=== PATIENT | male | born 1990 | race Caucasian/White ===

== ENCOUNTER 2017-07-16 11:10 | Emergency (ER) | payer SELFPAY ==
[~2017-07-16] VITALS: Ht 175.3 cm; Wt 106.0 kg
[2017-07-16 11:17] VITALS: BP 148/73; PULSE 74; RESP 16; TEMP 98.7; O2SAT 97
[2017-07-16] MEDS ORDERED: CLOT1CRE6 TOPICAL (11:42)
[2017-07-16] MEDS ORDERED: DOXY100C PO (11:42)
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
== END 2017-07-16 11:55 | disposition home or self-care (01) ==
LOC: PHEFT 11:10
DX: B35.4 Tinea corporis (principal); A69.20 Lyme disease, unspecified; M54.2 Cervicalgia
CPT/HCPCS: 99284

== ENCOUNTER 2018-02-01 16:12 | Observation (INO) | payer OTHER ==
[~2018-02-01] VITALS: Ht 177.8 cm; Wt 100.7 kg
[~2018-02-01 16:12] MED LIST: CLOT1CRE6 TOPICAL; DOXY100C PO
[2018-02-01 16:19] VITALS: BP 162/101; PULSE 66; RESP 16; TEMP 99.2; O2SAT 99
[2018-02-01 16:34] VITALS: BP 142/80; PULSE 61; RESP 18; TEMP 98; O2SAT 99
--- NOTE | 2018-02-01 16:51 | PD ---
HPI Chief Complaint: Fall Time Seen by Provider: 16:31 Travel History International Travel<30 days: No Contact w/Intl Traveler<30days: No Traveled to known affect area: No History of Present Illness HPI 27yo M with no PMH presents to the ED with c/o left wrist pain, back pain, neck pain s/p fall from scaffolding that was about 6 feet high at work about an hour ago. Did hit his head but denies any LOC. Has some tingling in right foot. Denies any visual changes, chest pain, sob, n/v, abdominal pain, focal weakness. Pt was driven here and had cervical collar placed in the ED. PFSH Past Medical History Diminished Hearing: No Immunizations Current: Yes Influenza Vaccination: No Social History Alcohol Use: No Tobacco Use: No Substance Use: No Allergies-Medications (Allergen,Severity, Reaction): Coded Allergies: No Known Allergies (Verified , 02/01/18) Reported Meds & Prescriptions Reported Meds & Active Scripts Active No Active Prescriptions or Reported Medications Review of Systems Except as stated in HPI: all other systems reviewed are Neg Physical Exam Narrative GENERAL: 27yo M in mild distress. SKIN: Focused skin assessment warm/dry. HEAD: Atraumatic. Normocephalic. EYES: Pupils equal and round. No scleral icterus. No injection or drainage. ENT: No nasal bleeding or discharge. Mucous membranes pink and moist. NECK: Trachea midline. No JVD. CARDIOVASCULAR: Regular rate and rhythm. No murmur appreciated. RESPIRATORY: No accessory muscle use. Clear to auscultation. Breath sounds equal bilaterally. GASTROINTESTINAL: Abdomen soft, tender to palpation but said his back hurts when I press his abdomen. No rebound tenderness or guarding. BACK: MUSCULOSKELETAL: Left wrist: +TTP distal ulnar. Sensation intact. No scaphoid ttp. Radial pulse 2+. NEUROLOGICAL: Awake and alert. No obvious cranial nerve deficits. Motor grossly within normal limits in all extremities. Sensation equal in all extremities. Normal speech. PSYCHIATRIC: Appropriate mood and affect; insight and judgment normal. Data Data Last Documented VS Vital Signs Date Time Temp Pulse Resp B/P (MAP) Pulse Ox O2 Delivery O2 Flow Rate FiO2 02/01/18 19:31 16 02/01/18 19:20 87 131/69 (89) 98 Room Air 02/01/18 16:[address] Brain W/O Iv Contrast(Rout) (02/01/18 16:43) Ct Cerv Spine W/O Contrast (02/01/18 16:43) Ct Abd/Pel W Iv Contrast(Rout) (02/01/18 16:43) Ct Thorax/ Chest W Iv Contrast (02/01/18 16:43) Ct Thor Spine W/O Contrast (02/01/18 ) Ct Lumb Spine W/O Contrast (02/01/18 ) Wrist, Limited (Ap&Lat) (02/01/18 ) Iohexol 350 Inj (Omnipaque 350 Inj) (02/01/18 18:35) Morphine Inj (Morphine Inj) (02/01/18 19:15) Complete Blood Count With Diff (02/01/18 19:05) Basic Metabolic Panel (Bmp) (02/01/18 19:05) Prothrombin Time / Inr (Pt) (02/01/18 19:05) Act Partial Throm Time (Ptt) (02/01/18 19:05) Type And Screen (02/01/18 19:05) Ct Brain W/O Iv Contrast(Rout) (02/01/18 ) Place In Observation (02/01/18 ) Vital Signs (Adult) Q4H (02/01/18 20:18) Activity Oob With Assistance (02/01/18 20:18) Diet Npo (02/02/18 Breakfast) Sodium Chlor 0.9% 1000 Ml Inj (Ns 1000 M (02/01/18 20:18) Sodium Chloride 0.9% Flush (Ns Flush) (02/01/18 20:30) Sodium Chloride 0.9% Flush (Ns Flush) (02/01/18 21:00) Acetaminophen (Tylenol) (02/01/18 20:30) Ondansetron Inj (Zofran Inj) (02/01/18 20:30) Basic Metabolic Panel (Bmp) (02/02/18 06:00) Complete Blood Count With Diff (02/02/18 06:00) Naloxone Inj (Narcan Inj) (02/01/18 20:30) Docusate Sodium-Senna (Lakshmi-Colace) (02/01/18 21:00) Magnesium Hydroxide Liq (Milk Of Magnesi (02/01/18 20:30) Sennosides (Senokot) (02/01/18 20:30) Bisacodyl Supp (Dulcolax Supp) (02/01/18 20:30) Lactulose Liq (Lactulose Liq) (02/01/18 20:30) Diazepam (Valium) (02/01/18 20:30) Admit Order (Ed Use Only) (02/01/18 20:23) Labs Laboratory Tests Test 02/01/18 19:19 White Blood Count 12.2 TH/MM3 Red Blood Count 5.05 MIL/MM3 Hemoglobin 14.3 GM/DL Hematocrit 42.8 % Mean Corpuscular Volume 84.8 FL Mean Corpuscular Hemoglobin 28.2 PG Mean Corpuscular Hemoglobin Concent 33.3 % Red Cell Distribution Width 13.0 % Platelet Count 193 TH/MM3 Mean Platelet Volume 8.5 FL Neutrophils (%) (Auto) 77.3 % Lymphocytes (%) (Auto) 16.0 % Monocytes (%) (Auto) 4.9 % Eosinophils (%) (Auto) 0.9 % Basophils (%) (Auto) 0.9 % Neutrophils # (Auto) 9.4 TH/MM3 Lymphocytes # (Auto) 2.0 TH/MM3 Monocytes # (Auto) 0.6 TH/MM3 Eosinophils # (Auto) 0.1 TH/MM3 Basophils # (Auto) 0.1 TH/MM3 CBC Comment DIFF FINAL Differential Comment Prothrombin Time 11.8 SEC Prothromb Time International Ratio 1.2 RATIO Activated Partial Thromboplast Time 23.9 SEC Blood Urea Nitrogen 14 MG/DL Creatinine 0.99 MG/DL Random Glucose 84 MG/DL Calcium Level 8.8 MG/DL Sodium Level 138 MEQ/L Potassium Level 3.5 MEQ/L Chloride Level 104 MEQ/L Carbon Dioxide Level 27.3 MEQ/L Anion Gap 7 MEQ/L Estimat Glomerular Filtration Rate 89 ML/MIN [facility] Medical Decision Making Medical Screen Exam Complete: Yes Emergency Medical Condition: Yes Differential Diagnosis Fracture vs. contusion Narrative Course 27yo M with no significant PMH here with back pain and left wrist pain s/p fall from scaffolding about 6 feet high. Pt did hit his head but has no LOC. CT a/ p showed no acute disease. CT cervical spine showed no acute bony injury. Mild central to left disc protrusion with osteophytic ridging at C3-4. CT chest negative. CT brain showed punctate hyperdensity in anterior high parietal left convexity that is somewhat linear and could represent a dense cortical vein although a small parenchymal hemorrhage cannot be completely excluded. Recommend overnight observation and repeat CT brain in the am to ensure stability/resolution. CT LS showed no bony abnormality. CT TS negative. Xray left wrist negative. Labs reviewed, WBC 12.2. H/H normal. BMP unremarkable. I discussed with neurosurgery Dr. Mehta regarding CT brain and CT cspine results and he said that he agrees with observation and repeat CT brain but does not really see much. Also recommends outpatient follow up for the osteophytic ridging and said that it is chronic but may need MRI and will need outpatient follow up with neurosurgery. I informed pt of this and he agrees to follow up with neurosurgery as outpatient for this. I discussed with Dr. Phoenix and accepted to her service. Pt given morphine which help with pain but still have a lot muscle aches so valium given. Diagnosis Primary Impression: Fall Qualified Codes: W19.XXXA - Unspecified fall, initial encounter Admitting Information Admitting Physician Requests: Observation Scripts No Active Prescriptions or Reported Meds Shira Simeon DO Feb 01, 2018 16:51
--- NOTE | 2018-02-01 17:18 | RADRPT ---
EXAM DATE/TIME: 02/01/2018 16:56 [facility] COMPARISON: No previous studies available for comparison. INDICATIONS : Left distal ulnar pain after falling 6ft from scaffolding today. MEDICAL HISTORY : None. SURGICAL HISTORY : Left forearm. ENCOUNTER: Initial ACUITY: 1 day PAIN SCORE: 8/10 LOCATION: Left wrist. FINDINGS: Plate is seen bridging an old distal radius fracture. Anchors are seen at the radiocarpal joint. Al ignment anatomic. Fracture is not appreciated. CONCLUSION: Negative for fracture. Ravi Pearson MD FACR on February 01, 2018 at 17:16 Board Certified Radiologist. This report was verified electronically.
[2018-02-01] MEDS ORDERED: IOHEXOL 350 MG/ML 10 ML VIAL (for RAD DIAG) IVCONTRAST ONE (18:35)
--- NOTE | 2018-02-01 18:39 | RADRPT ---
EXAM DATE/TIME: 02/01/2018 17:29 [facility] COMPARISON: No previous studies available for comparison. INDICATIONS : Fell off of a scaffold. Pain. RADIATION DOSE: 62.53 CTDIvol (mGy) MEDICAL HISTORY : None SURGICAL HISTORY : None. ENCOUNTER: Initial ACUITY: 1 day PAIN SCALE: 10/10 LOCATION: cranial TECHNIQUE: Multiple contiguous axial images were obtained of the head. Using automated exposure control and adj ustment of the mA and/or kV according to patient size, radiation dose was kept as low as reasonably a chievable to obtain optimal diagnostic quality images. DICOM format image data is available electro nically for review and comparison. FINDINGS: CEREBRUM: The ventricles are normal for age. Punctate hyperdensity in the left anterior parietal region is some what linear and may represent a cortical vein although a small parenchymal hemorrhage cannot be compl etely excluded. No extra-axial fluid collections are seen. POSTERIOR FOSSA: The cerebellum and brainstem are intact. The 4th ventricle is midline. The cerebellopontine angle i s unremarkable. EXTRACRANIAL: The visualized portion of the orbits is intact. Small air-fluid level in the right maxillary antrum SKULL: The calvaria is intact. No evidence of skull fracture. CONCLUSION: 1. Punctate hyperdensity in the anterior high parietal left convexity is somewhat linear and could re present a dense cortical vein although a small parenchymal hemorrhage cannot be completely excluded. Since there is a mechanism of injury, I would recommend overnight observation and repeat CT scan of t he head in the a.m. to insure stability/resolution. 2. Small air-fluid level in the right maxillary antra could represent acute sinusitis. No obvious fra cture. Derrick Ariza MD on February 01, 2018 at 18:33 Board Certified Radiologist. This report was verified electronically.
--- NOTE | 2018-02-01 18:45 | RADRPT ---
EXAM DATE/TIME: 02/01/2018 17:35 [facility] COMPARISON: No previous studies available for comparison. INDICATIONS : Fell off of a scaffold. Pain. IV CONTRAST: 95 cc Omnipaque 350 (iohexol) IV ; Cumulative dose for multiple exams. RADIATION DOSE: 17.57 CTDIvol (mGy) ; Combined studies - Thorax/Abdomen/Pelvis MEDICAL HISTORY : None SURGICAL HISTORY : None. ENCOUNTER: Initial ACUITY: 1 day PAIN SCALE: 10/10 LOCATION: chest TECHNIQUE: Volumetric scanning of the chest was performed. Using automated exposure control and adjustment of t he mA and/or kV according to patient size, radiation dose was kept as low as reasonably achievable to obtain optimal diagnostic quality images. DICOM format image data is available electronically for review and comparison. Follow-up recommendations for detected pulmonary nodules are based at a minimum on nodule size and pa tient risk factors according to Fleischner Society Guidelines. FINDINGS: There is no pneumothorax. The lungs are symmetrically aerated. There is no parenchymal contusion. There is no axillary adenopathy. There is no mediastinal adenopathy. The great vessels are intact. There is no pericardial effusion. Upper abdominal contents are unrema rkable. Review of bone windows reveals the scapula to be intact. There is no rib fracture. There is no thor acic spine fracture. CONCLUSION: Negative CT scan of the chest for acute traumatic injury. Ravi Pearson MD FACR on February 01, 2018 at 18:41 Board Certified Radiologist. This report was verified electronically.
--- NOTE | 2018-02-01 18:49 | RADRPT ---
EXAM DATE/TIME: 02/01/2018 17:35 [facility] COMPARISON: No previous studies available for comparison. INDICATIONS : Fell off of a scaffold. Pain. IV CONTRAST: 95 cc Omnipaque 350 (iohexol) IV ; Cumulative dose for multiple exams. ORAL CONTRAST: No oral contrast ingested. RADIATION DOSE: 17.57 CTDIvol (mGy) ; Combined studies - Thorax/Abdomen/Pelvis MEDICAL HISTORY : None SURGICAL HISTORY : None. ENCOUNTER: Initial ACUITY: 1 day PAIN SCALE: 10/10 LOCATION: pelvis abdomen TECHNIQUE: Volumetric scanning of the abdomen and pelvis was performed. Using automated exposure control and ad justment of the mA and/or kV according to patient size, radiation dose was kept as low as reasonably achievable to obtain optimal diagnostic quality images. DICOM format image data is available electro nically for review and comparison. FINDINGS: LOWER LUNGS: The visualized lower lungs are clear. LIVER: Homogeneous density without lesion. There is no dilation of the biliary tree. No calcified gallston es. SPLEEN: Normal size without lesion. PANCREAS: Within normal limits. KIDNEYS: Normal in size and shape. There is no mass, stone or hydronephrosis. ADRENAL GLANDS: Within normal limits. VASCULAR: There is no aortic aneurysm. BOWEL/MESENTERY: The stomach, small bowel, and colon demonstrate no acute abnormality. There is no free intraperitone al air or fluid. ABDOMINAL WALL: Within normal limits. RETROPERITONEUM: There is no lymphadenopathy. BLADDER: No wall thickening or mass. REPRODUCTIVE: Within normal limits. INGUINAL: There is no lymphadenopathy or hernia. MUSCULOSKELETAL: Within normal limits for patient age. CONCLUSION: No acute disease. Mat Singh MD on February 01, 2018 at 18:45 Board Certified Radiologist. This report was verified electronically.
--- NOTE | 2018-02-01 19:08 | RADRPT ---
EXAM DATE/TIME: 02/01/2018 17:29 [facility] COMPARISON: No previous studies available for comparison. INDICATIONS : Fell off of a scaffold. Pain. RADIATION DOSE: 26.71 CTDIvol (mGy) MEDICAL HISTORY : None SURGICAL HISTORY : None. ENCOUNTER: Initial ACUITY: 1 day PAIN SCALE: 10/10 LOCATION: neck TECHNIQUE: Volumetric scanning of the cervical spine was performed. Multiplanar reconstructions in the sagittal, coronal and oblique axial planes were performed. Using automated exposure control and adjustment o f the mA and/or kV according to patient size, radiation dose was kept as low as reasonably achievable to obtain optimal diagnostic quality images. DICOM format image data is available electronically f or review and comparison. FINDINGS: VERTEBRAE: Normal vertebral body height. ALIGNMENT: No evidence of subluxation. C2-C3: The bony spinal canal is normal in size. No evidence of disc bulge or herniation. The neural forami na are bilaterally patent. There is mild right facet hypertrophy. C3-C4: There is a mild central to left sided disc protrusion with osteophytic ridging. There is a mild impre ssion on the thecal sac. The neural foramina are bilaterally patent. C4-C5: The bony spinal canal is normal in size. No evidence of disc bulge or herniation. The neural forami na are bilaterally patent. C5-C6: The bony spinal canal is normal in size. No evidence of disc bulge or herniation. The neural forami na are bilaterally patent. C6-C7: The bony spinal canal is normal in size. No evidence of disc bulge or herniation. The neural forami na are bilaterally patent. C7-T1: The bony spinal canal is normal in size. No evidence of disc bulge or herniation. The neural forami na are bilaterally patent. CONCLUSION: 1. No acute bony injury is seen. 2. Mild central to left sided disc protrusion with osteophytic ridging at the C3-C4 level. Mat Singh MD on February 01, 2018 at 19:01 Board Certified Radiologist. This report was verified electronically.
[2018-02-01] MEDS ORDERED: MORPHINE SULFATE 4 MG/ML INJ IV PUSH ONE (19:15)
[2018-02-01 19:20] VITALS: BP 131/69; PULSE 87; RESP 18; O2SAT 98
[2018-02-01 19:26] LABS: AUTOMATED NEUTROPHIL # 9.4 TH/MM3 (1.8-7.7); BASOPHIL # 0.1 TH/MM3 (0-0.2); BASOPHIL % 0.9 % (0.0-2.0); EOSINOPHIL # 0.1 TH/MM3 (0-0.4); EOSINOPHIL % 0.9 % (0.0-4.0); HEMATOCRIT 42.8 % (39.0-51.0); HEMOGLOBIN 14.3 GM/DL (13.0-17.0); MEAN CELL VOLUME 84.8 FL (80.0-100.0); MEAN CORPUSCULAR HEMOGLOBIN 28.2 PG (27.0-34.0); MEAN CORPUSCULAR HGB CONC 33.3 % (32.0-36.0); MEAN PLATELET VOLUME 8.5 FL (7.0-11.0); MONO % 4.9 % (0.0-8.0); MONOCYTE # 0.6 TH/MM3 (0-0.9); NEUT % 77.3 % (16.0-70.0); PLATELET COUNT 193 TH/MM3 (150-450); RED BLOOD COUNT 5.05 MIL/MM3 (4.50-5.90); WHITE BLOOD COUNT 12.2 TH/MM3 (4.0-11.0)
--- NOTE | 2018-02-01 19:40 | RADRPT ---
EXAM DATE/TIME: 02/01/2018 17:35 [facility] COMPARISON: No previous studies available for comparison. INDICATIONS : Fell off of a scaffold. Pain. RADIATION DOSE: ; Reconstructed from previous dataset, no dose MEDICAL HISTORY : None SURGICAL HISTORY : None. ENCOUNTER: Initial ACUITY: 1 day PAIN SCALE: 10/10 LOCATION: SPINE TECHNIQUE: Volumetric scanning of the thoracic spine was performed. Multiplanar reconstructions in the sagittal , coronal and oblique axial planes were performed. Using automated exposure control and adjustment o f the mA and/or kV according to patient size, radiation dose was kept as low as reasonably achievable to obtain optimal diagnostic quality images. DICOM format image data is available electronically f or review and comparison. FINDINGS: The vertebral bodies of the thoracic spine are in normal alignment without evidence of subluxation. Vertebral body height is maintained. No fractures are seen. Enhancing vessels are seen around the ri ght lower cervical spine and upper thoracic spine. These are from the power injected contrast. T1-T2: Normal. T2-T3: The thecal sac has a normal diameter. No evidence of disc bulge or protrusion. T3-T4: The thecal sac has a normal diameter. No evidence of disc bulge or protrusion. T4-T5: The thecal sac has a normal diameter. No evidence of disc bulge or protrusion. T5-T6: The thecal sac has a normal diameter. No evidence of disc bulge or protrusion. T6-T7: The thecal sac has a normal diameter. No evidence of disc bulge or protrusion. T7-T8: The thecal sac has a normal diameter. No evidence of disc bulge or protrusion. T8-T9: The thecal sac has a normal diameter. No evidence of disc bulge or protrusion. T9-T10: The thecal sac has a normal diameter. No evidence of disc bulge or protrusion. T10-T11: The thecal sac has a normal diameter. No evidence of disc bulge or protrusion. T11-T12: The thecal sac has a normal diameter. No evidence of disc bulge or protrusion. T12-L1: The thecal sac has a normal diameter. No evidence of disc bulge or protrusion. CONCLUSION: No acute disease. Mat Singh MD on February 01, 2018 at 19:36 Board Certified Radiologist. This report was verified electronically.
--- NOTE | 2018-02-01 19:42 | RADRPT ---
EXAM DATE/TIME: 02/01/2018 17:35 [facility] COMPARISON: No previous studies available for comparison. INDICATIONS : Fell off of a scaffold. Pain. RADIATION DOSE: ; Reconstructed from previous dataset, no dose MEDICAL HISTORY : None SURGICAL HISTORY : None. ENCOUNTER: Initial ACUITY: 1 day PAIN SCALE: 10/10 LOCATION: spine TECHNIQUE: Volumetric scanning of the lumbar spine was performed. Multiplanar reconstructions in the sagittal, coronal and oblique axial planes were performed. Using automated exposure control and adjustment of the mA and/or kV according to patient size, radiation dose was kept as low as reasonably achievable t o obtain optimal diagnostic quality images. DICOM format image data is available electronically for review and comparison. FINDINGS: VERTEBRAE: Normal vertebral body height. ALIGNMENT: No evidence of subluxation. T12-L1: The thecal sac has a normal diameter. No evidence of disc bulge or protrusion. The neural foramina are patent bilaterally. L1-L2: The thecal sac has a normal diameter. No evidence of disc bulge or protrusion. The neural foramina are patent bilaterally. L2-L3: The thecal sac has a normal diameter. No evidence of disc bulge or protrusion. The neural foramina are patent bilaterally. L3-L4: The thecal sac has a normal diameter. No evidence of disc bulge or protrusion. The neural foramina are patent bilaterally. L4-L5: The thecal sac has a normal diameter. No evidence of disc bulge or protrusion. The neural foramina are patent bilaterally. L5-S1: There is minimal disc bulge without significant stenosis. The neural foramina are patent bilaterally. CONCLUSION: 1. No bony abnormality is seen. 2. Minimal disc bulge at the L5-S1 level. Mat Singh MD on February 01, 2018 at 19:38 Board Certified Radiologist. This report was verified electronically.
[2018-02-01 19:43] LABS: CALCIUM 8.8 MG/DL (8.5-10.1)
[2018-02-01 19:44] LABS: BICARBONATE 27.3 MEQ/L (21.0-32.0)
[2018-02-01 19:47] LABS: CREATININE 0.99 MG/DL (0.60-1.30); INTERNATIONAL NORMALIZED RATIO 1.2 RATIO; PROTHROMBIN TIME - PATIENT 11.8 SEC (9.8-11.6)
[2018-02-01] MEDS: SODIUM CHLOR 0.9% 1000 ML INJ 1,000 ML IV SCH (20:18)
[2018-02-01] MEDS ORDERED: SENNOSIDES 8.6 MG TAB PO PRN (20:30)
[2018-02-01] MEDS ORDERED: ONDANSETRON HCL 4 MG/2 ML VIAL IVP PRN (20:30)
[2018-02-01] MEDS ORDERED: ACETAMINOPHEN 325 MG TAB PO PRN (20:30)
[2018-02-01] MEDS ORDERED: LACTULOSE SYRUP 20 GM/30 ML CUP PO PRN (20:30)
[2018-02-01] MEDS ORDERED: BISACODYL 10 MG SUPP RECTAL PRN (20:30)
[2018-02-01] MEDS ORDERED: SODIUM CHLORIDE 0.9% FLUSH 10 ML FLUSH IV FLUSH PRN (20:30)
[2018-02-01] MEDS ORDERED: MAGNESIUM HYDROXIDE SUSP 30 ML CUP PO PRN (20:30)
[2018-02-01] MEDS ORDERED: NALOXONE HCL 0.4 MG/ML AMP IV PUSH PRN (20:30)
[2018-02-01] MEDS ORDERED: DIAZEPAM 5 MG TAB PO ONE (20:30)
[2018-02-01] MEDS: DOCUSATE SODIUM 50 MG/SENNA 8.6 MG TAB PO SCH (21:00)
[2018-02-01] MEDS: SODIUM CHLORIDE 0.9% FLUSH 10 ML FLUSH IV FLUSH SCH (21:00)
[2018-02-01 22:46] VITALS: BP 120/65
[2018-02-02] VITALS: BP 118/64; PULSE 82; RESP 20; TEMP 97.5; O2SAT 94
[2018-02-02] MEDS ORDERED: HYDROmorphone HCL PF 2 MG/ML VIAL IV PUSH ONE (00:15)
[2018-02-02] MEDS: SODIUM CHLOR 0.9% 1000 ML INJ 1,000 ML IV SCH (05:47)
[2018-02-02 06:11] LABS: AUTOMATED NEUTROPHIL # 4.6 TH/MM3 (1.8-7.7); BASOPHIL # 0.1 TH/MM3 (0-0.2); BASOPHIL % 0.9 % (0.0-2.0); EOSINOPHIL # 0.1 TH/MM3 (0-0.4); EOSINOPHIL % 1.6 % (0.0-4.0); HEMATOCRIT 43.5 % (39.0-51.0); HEMOGLOBIN 14.2 GM/DL (13.0-17.0); LYMPH % 26.3 % (9.0-44.0); LYMPHOCYTE # 1.9 TH/MM3 (1.0-4.8); MEAN CELL VOLUME 85.5 FL (80.0-100.0); MEAN CORPUSCULAR HEMOGLOBIN 27.9 PG (27.0-34.0); MEAN CORPUSCULAR HGB CONC 32.7 % (32.0-36.0); MEAN PLATELET VOLUME 8.8 FL (7.0-11.0); MONOCYTE # 0.5 TH/MM3 (0-0.9); NEUT % 64.2 % (16.0-70.0); PLATELET COUNT 194 TH/MM3 (150-450); RED BLOOD COUNT 5.08 MIL/MM3 (4.50-5.90); RED CELL DISTRIBUTION WIDTH 12.8 % (11.6-17.2); WHITE BLOOD COUNT 7.2 TH/MM3 (4.0-11.0)
[2018-02-02 06:23] LABS: CALCIUM 8.7 MG/DL (8.5-10.1)
[2018-02-02 06:24] LABS: BICARBONATE 27.2 MEQ/L (21.0-32.0)
[2018-02-02 06:27] LABS: CREATININE 0.97 MG/DL (0.60-1.30)
[2018-02-02 08:00] VITALS: BP 107/60; PULSE 89; RESP 16; TEMP 98; O2SAT 97
--- NOTE | 2018-02-02 08:56 | RADRPT ---
EXAM DATE/TIME: 02/02/2018 08:29 [place] COMPARISON: CT BRAIN W/O CONTRAST, February 01, 2018, 17:29. INDICATIONS : Follow up. Questionable punctate hyperdensity. RADIATION DOSE: 61.10 CTDIvol (mGy) MEDICAL HISTORY : None SURGICAL HISTORY : None. ENCOUNTER: Subsequent ACUITY: 2 days PAIN SCALE: 8/10 LOCATION: cranial TECHNIQUE: Multiple contiguous axial images were obtained of the head. Using automated exposure control and adj ustment of the mA and/or kV according to patient size, radiation dose was kept as low as reasonably a chievable to obtain optimal diagnostic quality images. DICOM format image data is available electro nically for review and comparison. FINDINGS: CEREBRUM: Punctate hyperdensity left frontal cortex is less prominent. The ventricles are normal for age. No e vidence of midline shift, mass lesion, hemorrhage or acute infarction. No extra-axial fluid collecti ons are seen. POSTERIOR FOSSA: The cerebellum and brainstem are intact. The 4th ventricle is midline. The cerebellopontine angle i s unremarkable. EXTRACRANIAL: The visualized portion of the orbits is intact. SKULL: The calvaria is intact. No evidence of skull fracture. CONCLUSION: Punctate hyperdensity left frontal cortex is less prominent could be resolving petechial hemorrhage. No midline shift or mass effect. Mason Caldera MD on February 02, 2018 at 8:53 Board Certified Radiologist. This report was verified electronically.
[2018-02-02] MEDS: SODIUM CHLORIDE 0.9% FLUSH 10 ML FLUSH IV FLUSH SCH (09:27)
[2018-02-02] MEDS: DOCUSATE SODIUM 50 MG/SENNA 8.6 MG TAB PO SCH (09:28)
[2018-02-02] MEDS ORDERED: NALOXONE HCL 0.4 MG/ML AMP IV PUSH PRN (10:45)
--- NOTE | 2018-02-02 10:50 | HHI.HP ---
[facility] No Primary Care Physician Admission Diagnosis Fall, possible parenchymal hemorrhage Diagnoses: Travel History International Travel<30 Days: No Contact w/Intl Traveler <30 Da: No Traveled to Known Affected Are: No History of Present Illness 27-year-old male with no significant past medical history who fell off scaffolding yesterday afternoon. No loss of consciousness. He reports sharp low back pain with radiation to right leg, worse with walking. Denies any numbness, tingling, weakness. He reports dull posterior and bilateral headache , worse with moving his head to the left. He reports otherwise feeling all right. Denies any chest pain, shortness of breath, nausea, vomiting, fevers, chills. Patient says that Dilaudid worked last night. Review of Systems Except as stated in HPI: all other systems reviewed are Neg Past Family Social History Past Medical History Patient denies any past medical history. Past Surgical History Patient had ORIF of left forearm in the past. Reported Medications Does not take medications Allergies: Coded Allergies: No Known Allergies (Verified , 02/01/18) Family History Mother with no medical issues. Father with kidney disease. Social History Non-smoker. Rare drinker. Denies illicit drugs. Physical Exam Vital Signs Vital Signs Date Time Temp Pulse Resp B/P (MAP) Pulse Ox O2 Delivery O2 Flow Rate FiO2 02/02/18 08:00 98.0 89 16 107/60 (76) 97 02/02/18 07:08 20 02/02/18 00:00 97.5 82 20 118/64 (82) 94 02/01/18 22:46 78 16 120/65 (83) 98 02/01/18 19:31 16 02/01/18 19:20 87 18 131/69 (89) 98 Room Air 02/01/18 16:34 98.0 61 18 142/80 (100) 99 Room Air 02/01/18 16:30 66 99 Room Air 02/01/18 16:19 99.2 66 16 162/101 (121) 99 Physical Exam GENERAL: This is a well-nourished, well-developed patient, in no apparent distress. Alert and oriented 4. SKIN: No rashes, ecchymoses or lesions. Cool and dry. HEAD: Atraumatic. Normocephalic. No temporal or scalp tenderness. Patient has exacerbation of pain with forceful movement of head to the left against examiner 's hand, not so much with movement of head to the right. EYES: Pupils equal round and reactive. Extraocular motions intact. No scleral icterus. No injection or drainage. ENT: Nose without bleeding, purulent drainage or septal hematoma. Throat without erythema, tonsillar hypertrophy or exudate. Uvula midline. Airway patent. NECK: Trachea midline. No JVD or lymphadenopathy. Supple, nontender, no meningeal signs. CARDIOVASCULAR: Regular rate and rhythm without murmurs, gallops, or rubs. RESPIRATORY: Clear to auscultation. Breath sounds equal bilaterally. No wheezes , rales, or rhonchi. GASTROINTESTINAL: Abdomen soft, non-tender, nondistended. No hepato-splenomegaly , or palpable masses. No guarding. MUSCULOSKELETAL: Extremities without clubbing, cyanosis, or edema. No joint tenderness, effusion, or edema noted. No calf tenderness. Negative Homans sign bilaterally. NEUROLOGICAL: Awake and alert. Cranial nerves II through XII intact. Motor and sensory grossly within normal limits. Five out of 5 muscle strength in all muscle groups. Normal speech. Laboratory Laboratory Tests Test 02/01/18 19:19 02/02/18 05:45 White Blood Count 12.2 7.2 Red Blood Count 5.05 5.08 Hemoglobin 14.3 14.2 Hematocrit 42.8 43.5 Mean Corpuscular Volume 84.8 85.5 Mean Corpuscular Hemoglobin 28.2 27.9 Mean Corpuscular Hemoglobin Concent 33.3 32.7 Red Cell Distribution Width 13.0 12.8 Platelet Count 193 194 Mean Platelet Volume 8.5 8.8 Neutrophils (%) (Auto) 77.3 64.2 Lymphocytes (%) (Auto) 16.0 26.3 Monocytes (%) (Auto) 4.9 7.0 Eosinophils (%) (Auto) 0.9 1.6 Basophils (%) (Auto) 0.9 0.9 Neutrophils # (Auto) 9.4 4.6 Lymphocytes # (Auto) 2.0 1.9 Monocytes # (Auto) 0.6 0.5 Eosinophils # (Auto) 0.1 0.1 Basophils # (Auto) 0.1 0.1 CBC Comment DIFF FINAL DIFF FINAL Differential Comment Prothrombin Time 11.8 Prothromb Time International Ratio 1.2 Activated Partial Thromboplast Time 23.9 Blood Urea Nitrogen 14 12 Creatinine 0.99 0.97 Random Glucose 84 99 Calcium Level 8.8 8.7 Sodium Level 138 139 Potassium Level 3.5 3.6 Chloride Level 104 105 Carbon Dioxide Level 27.3 27.2 Anion Gap 7 7 Estimat Glomerular Filtration Rate 89 92 Result Diagram: 02/02/18 0545 02/02/18 0545 Imaging Last Impressions Head CT 02/01/181642 Signed Impressions: Service Date/Time: Thursday, February 01, 2018 17:29 - CONCLUSION: 1. Punctate hyperdensity in the anterior high parietal left convexity is somewhat linear and could represent a dense cortical vein although a small parenchymal hemorrhage cannot be completely excluded. Since there is a mechanism of injury, I would recommend overnight observation and repeat CT scan of the head in the a.m. to insure stability/resolution. 2. Small air-fluid level in the right maxillary antra could represent acute sinusitis. No obvious fracture. Derrick Ariza MD Chest CT 02/01/181642 Signed Impressions: Service Date/Time: Thursday, February 01, 2018 17:35 - CONCLUSION: Negative CT scan of the chest for acute traumatic injury. Ravi Pearson MD FACR Cervical Spine CT 02/01/18 164 Signed Impressions: Service Date/Time: Thursday, February 01, 2018 17:29 - CONCLUSION: 1. No acute bony injury is seen. 2. Mild central to left sided disc protrusion with osteophytic ridging at the C3-C4 level. Mat Singh MD Abdomen/Pelvis CT 02/01/18 1643 Signed Impressions: Service Date/Time: Thursday, February 01, 2018 17:35 - CONCLUSION: No acute disease. Mat Singh MD Wrist X-Ray 02/01/18 0000 Signed Impressions: Service Date/Time: Thursday, February 01, 2018 16:56 - CONCLUSION: Negative for fracture. Ravi Pearson MD FACR Thoracic Spine CT 02/01/18 0000 Signed Impressions: Service Date/Time: Thursday, February 01, 2018 17:35 - CONCLUSION: No acute disease. Mat Singh MD Lumbar Spine CT 02/01/18 0000 Signed Impressions: Service Date/Time: Thursday, February 01, 2018 17:35 - CONCLUSION: 1. No bony abnormality is seen. 2. Minimal disc bulge at the L5-S1 level. MD Isa Spears VTE Risk Assessment Caprini VTE Risk Assessment: No/Low Risk (score <= 1) Caprini Risk Assessment Model Point Value = 1 Point Value = 2 Point Value = 3 Point Value = 5 Age 41-60 Minor surgery BMI > 25 kg/m2 Swollen legs Varicose veins or History of unexplained or recurrent spontaneous Oral contraceptives or hormone replacement Sepsis (< 1 month) Serious lung disease, including pneumonia (< 1 month) Abnormal pulmonary function Acute myocardial infarction Congestive heart failure (< 1 month) History of inflammatory bowel disease Medical patient at bed rest Age 61-74 Arthroscopic surgery Major open surgery (> 45 min) Laparoscopic surgery (> 45 min) Malignancy Confined to bed (> 72 hours) Immobilizing plaster cast Central venous access Age >= 75 History of VTE Family history of VTE Factor V Leiden Prothrombin [id number] Lupus anticoagulant Anticardiolipin antibodies Elevated serum homocysteine Heparin-induced thrombocytopenia Other congenital or acquired thrombophilia Stroke (< 1 month) Elective arthroplasty Hip, pelvis, or leg fracture Acute spinal cord injury (< 1 month) Prophylaxis Regimen Total Risk Factor Score Risk Level Prophylaxis Regimen 0-1 Low Early ambulation 2 Moderate Order ONE of the following: *Sequential Compression Device (SCD) *Heparin 5000 units SQ BID 3-4 Higher Order ONE of the following medications: *Heparin 5000 units SQ TID *Enoxaparin/Lovenox 40 mg SQ daily (WT < 150 kg, CrCl > 30 mL/min) *Enoxaparin/Lovenox 30 mg SQ daily (WT < 150 kg, CrCl > 10-29 mL/min) *Enoxaparin/Lovenox 30 mg SQ BID (WT < 150 kg, CrCl > 30 mL/min) AND/OR *Sequential Compression Device (SCD) 5 or more Highest Order ONE of the following medications: *Heparin 5000 units SQ TID (Preferred with Epidurals) *Enoxaparin/Lovenox 40 mg SQ daily (WT < 150 kg, CrCl > 30 mL/min) *Enoxaparin/Lovenox 30 mg SQ daily (WT < 150 kg, CrCl > 10-29 mL/min) *Enoxaparin/Lovenox 30 mg SQ BID (WT < 150 kg, CrCl > 30 mL/min) AND *Sequential Compression Device (SCD) Assessment and Plan Assessment and Plan //Status post mechanical fall //Back pain with radiation to right leg. //Headache = No weakness. Neurologic exam with symmetric reflexes. = With no loss of consciousness. = Muscle relaxant. = Headache is cervicogenic headache secondary to muscle strain from fall. = Would like to avoid narcotics = Advised patient to take it easy for a week, follow-up with primary care prior to going back to work. //Possible intraparenchymal hemorrhage. = Imaging negative, except for head CT with punctate hyperdensity in the anterior high parietal left convexity as above. Will repeat CT scan today. Discussed Condition With Patient, nurse Physician Certification 2 Midnight Certification Type: Continued Stay Order for Inpatient Services Observation only Estimated LOS (days): 1 days is the estimated time the patient will need to remain in the hospital, assuming treatment plan goals are met and no additional complications. Post-Hospital Plan: Home Notes: Observation only Joshua Marcos MD Feb 02, 2018 10:50
[2018-02-02] MEDS ORDERED: META800 PO (10:52)
[2018-02-02] MEDS ORDERED: TYLE325T PO (10:52)
[2018-02-02] MEDS ORDERED: ACETAMINOPHEN/HYDROcodone 325 MG/5 MG TAB PO PRN (11:00)
[2018-02-02] MEDS ORDERED: ACETAMINOPHEN/HYDROcodone 325 MG/7.5 MG TAB PO PRN (11:00)
[2018-02-02] MEDS ORDERED: METAXALONE 800 MG TAB PO SCH (13:00)
== END 2018-02-02 12:28 | disposition home or self-care (01) ==
LOC: PHED 16:12 → PHEDA 20:24 → PH3B 23:00
PROVIDERS: ADMIT Internal Medicine; ATTEND Internal Medicine
DX: M54.5 Low back pain (principal); M79.604 Pain in right leg; R51 Headache; M25.532 Pain in left wrist; W17.89XA Other fall from one level to another, initial encounter
CPT/HCPCS: 70450; 71260; 72125; 72128; 72131; 73100; 74177; 80048; 85025; 85610; 85730; 86850; 86900; 86901; 96361; 96374; 96375; 99285; G0378; J1170; J2270; J7030; Q9967